=== PATIENT | female | born 1960 | race Caucasian/White ===

== ENCOUNTER → 2016-05-08 | Outpatient (CLI) | payer OTHER ==
[2016-05-08 19:48] LABS: FREE T4 1.11 NG/DL (0.76-1.46)
== END ==
LOC: M LAB 17:47
PROVIDERS: ATTEND Family Medicine
DX: E03.9 Hypothyroidism, unspecified (principal)

== ENCOUNTER → 2016-07-02 | Outpatient (CLI) | payer OTHER ==
[2016-07-02 18:42] LABS: FREE T4 1.04 NG/DL (0.76-1.46)
== END ==
LOC: M LAB 16:53
PROVIDERS: ATTEND Family Medicine
DX: E03.9 Hypothyroidism, unspecified (principal)

== ENCOUNTER → 2016-08-28 | Outpatient (CLI) | payer OTHER ==
[2016-08-28 19:07] LABS: FREE T4 0.89 NG/DL (0.76-1.46)
== END ==
LOC: M LAB 16:14
PROVIDERS: ATTEND Family Medicine
DX: E03.9 Hypothyroidism, unspecified (principal)

== ENCOUNTER → 2016-12-29 | Outpatient (CLI) | payer OTHER ==
[2016-12-29 12:48] LABS: FREE T4 1.02 NG/DL (0.76-1.46)
== END ==
LOC: M LAB 11:35
PROVIDERS: ATTEND Family Medicine
DX: E03.9 Hypothyroidism, unspecified (principal)

== ENCOUNTER → 2017-05-25 | Outpatient (REF) | payer OTHER ==
[2017-05-25 18:26] LABS: FREE T3 6.6 PG/ML (2.2-4.0); FREE T4 1.34 NG/DL (0.76-1.46)
[2017-05-25 18:26] LABS: THYROID STIMULATING HORMONE 0.072 uIU/ML (0.358-3.740)
== END ==
LOC: M LABDRAW1 15:36
DX: E03.9 Hypothyroidism, unspecified (principal)
CPT/HCPCS: 84443

== ENCOUNTER → 2017-06-21 | Outpatient (CLI) | payer OTHER ==
[2017-06-21 20:32] LABS: THYROID STIMULATING HORMONE 0.024 uIU/ML (0.358-3.740)
[2017-06-21 20:32] LABS: FREE T3 5.5 PG/ML (2.2-4.0); FREE T4 1.07 NG/DL (0.76-1.46)
== END ==
LOC: M WUC 16:16
DX: E03.9 Hypothyroidism, unspecified (principal)

== ENCOUNTER → 2017-07-05 | Outpatient (REF) | payer OTHER ==
[2017-07-05 16:28] LABS: THYROID STIMULATING HORMONE 0.018 uIU/ML (0.358-3.740)
[2017-07-05 16:28] LABS: FREE T3 5.1 PG/ML (2.2-4.0); FREE T4 0.82 NG/DL (0.76-1.46)
== END ==
LOC: M LABDRAW1 14:47
DX: E03.9 Hypothyroidism, unspecified (principal)
CPT/HCPCS: 84443

== ENCOUNTER → 2018-04-22 | Outpatient (CLI) | payer OTHER ==
[2018-04-22 19:45] LABS: FREE T3 1.9 PG/ML (2.2-4.0); FREE T4 0.82 NG/DL (0.76-1.46); THYROID STIMULATING HORMONE 1.8 uIU/ML (0.358-3.740)
== END ==
LOC: M WUC 16:46
PROVIDERS: ATTEND Nurse Practitioner
DX: E03.9 Hypothyroidism, unspecified (principal)

== ENCOUNTER → 2018-08-23 | Outpatient (CLI) | payer OTHER ==
[2018-08-23 19:51] LABS: FREE T3 1.5 PG/ML (2.2-4.0); FREE T4 0.77 NG/DL (0.76-1.46); THYROID STIMULATING HORMONE 42.3 uIU/ML (0.358-3.740)
== END ==
LOC: M WUC 17:13
PROVIDERS: ATTEND Family Medicine
DX: E03.9 Hypothyroidism, unspecified (principal)

== ENCOUNTER → 2018-10-24 | Outpatient (CLI) | payer OTHER ==
[2018-10-24 21:00] LABS: FREE T3 2.6 PG/ML (2.2-4.0); FREE T4 0.9 NG/DL (0.76-1.46); THYROID STIMULATING HORMONE 0.141 uIU/ML (0.358-3.740)
== END ==
LOC: M WUC 17:10
PROVIDERS: ATTEND Family Medicine
DX: E03.9 Hypothyroidism, unspecified (principal)

== ENCOUNTER → 2018-11-05 | Outpatient (CLI) | payer OTHER ==
[2018-11-05 09:51] LABS: CHOLESTEROL RISK RATIO 3.15 (<5)
== END ==
LOC: M WUC 08:48
PROVIDERS: ATTEND Family Medicine
DX: Z00.00 Encounter for general adult medical examination without abnormal findings (principal); E78.5 Hyperlipidemia, unspecified

== ENCOUNTER → 2019-02-15 | Outpatient (CLI) | payer OTHER ==
[2019-02-15 20:28] LABS: FREE T3 4.2 PG/ML (2.2-4.0); THYROID STIMULATING HORMONE < 0.005 uIU/ML (0.358-3.740)
== END ==
LOC: M WUC 16:02
PROVIDERS: ATTEND Family Medicine
DX: E03.9 Hypothyroidism, unspecified (principal)

== ENCOUNTER → 2019-03-13 | Outpatient (CLI) | payer OTHER ==
[2019-03-13 20:38] LABS: FREE T3 4.3 PG/ML (2.2-4.0); THYROID STIMULATING HORMONE < 0.005 uIU/ML (0.358-3.740)
[2019-03-13 20:40] LABS: TOTAL 25(OH) VITAMIN D 43.8 NG/ML (30.0-100.0); VITAMIN B12 LEVEL 871 PG/ML (247-911)
== END ==
LOC: M WUC 16:15
PROVIDERS: ATTEND Family Medicine
DX: E03.9 Hypothyroidism, unspecified (principal); E55.9 Vitamin D deficiency, unspecified; E53.8 Deficiency of other specified B group vitamins

== ENCOUNTER → 2019-04-07 | Outpatient (CLI) | payer OTHER ==
[2019-04-07 20:33] LABS: FREE T3 3.4 PG/ML (2.2-4.0); FREE T4 0.84 NG/DL (0.76-1.46); THYROID STIMULATING HORMONE 0.007 uIU/ML (0.358-3.740)
== END ==
LOC: M WUC 16:17
PROVIDERS: ATTEND Family Medicine
DX: E03.9 Hypothyroidism, unspecified (principal)

== ENCOUNTER → 2019-05-09 | Outpatient (CLI) | payer OTHER ==
[2019-05-09 20:11] LABS: FREE T3 3.3 PG/ML (2.2-4.0); FREE T4 0.75 NG/DL (0.76-1.46); THYROID STIMULATING HORMONE 0.012 uIU/ML (0.358-3.740)
== END ==
LOC: M WUC 16:57
PROVIDERS: ATTEND Family Medicine
DX: E03.9 Hypothyroidism, unspecified (principal)

== ENCOUNTER → 2019-08-11 | Outpatient (CLI) | payer OTHER ==
[2019-08-11 14:42] LABS: FREE T3 3.6 PG/ML (2.2-4.0); FREE T4 1.16 NG/DL (0.76-1.46); THYROID STIMULATING HORMONE 0.019 uIU/ML (0.358-3.740)
== END ==
LOC: M WUC 12:25
PROVIDERS: ATTEND Family Medicine
DX: E03.9 Hypothyroidism, unspecified (principal)

== ENCOUNTER → 2019-12-19 | Outpatient (CLI) | payer OTHER ==
[2019-12-19 13:59] LABS: FREE T3 4.3 PG/ML (2.2-4.0); THYROID STIMULATING HORMONE 0.007 uIU/ML (0.358-3.740)
== END ==
LOC: M WUC 10:54
PROVIDERS: ATTEND Family Medicine
DX: E03.9 Hypothyroidism, unspecified (principal)

== ENCOUNTER → 2020-04-22 | Outpatient (CLI) | payer OTHER ==
[2020-04-22 18:57] LABS: FREE T3 2.2 PG/ML (2.2-4.0); FREE T4 0.78 NG/DL (0.76-1.46); THYROID STIMULATING HORMONE 1.16 uIU/ML (0.358-3.740)
== END ==
LOC: M WUC 15:42
PROVIDERS: ATTEND Family Medicine
DX: E03.9 Hypothyroidism, unspecified (principal)

== ENCOUNTER → 2020-10-09 | Outpatient (CLI) | payer OTHER ==
[2020-10-09 17:18] LABS: FREE T3 2.4 PG/ML (2.2-4.0); FREE T4 0.74 NG/DL (0.76-1.46); THYROID STIMULATING HORMONE 3.39 uIU/ML (0.358-3.740)
== END ==
LOC: M WUC 15:24
PROVIDERS: ATTEND Family Medicine
DX: E03.9 Hypothyroidism, unspecified (principal)

== ENCOUNTER → 2021-01-09 | Outpatient (CLI) | payer OTHER ==
[2021-01-09 20:05] LABS: FREE T3 1.4 PG/ML (2.2-4.0)
[2021-01-09 20:08] LABS: THYROID PEROXIDASE ANTIBODY < 28.0 U/ML (<60.0)
[2021-01-09 20:09] LABS: THYROGLOBULIN ANTIBODY 22.2 U/ML (<60.0)
== END ==
LOC: M WUC 15:38
PROVIDERS: ATTEND Family Medicine
DX: E03.9 Hypothyroidism, unspecified (principal)

== ENCOUNTER → 2021-05-05 | Outpatient (CLI) | payer OTHER ==
[2021-05-05 16:04] LABS: FREE T3 1.7 PG/ML (2.2-4.0); FREE T4 0.95 NG/DL (0.76-1.46); THYROID STIMULATING HORMONE 39.6 uIU/ML (0.358-3.740)
== END ==
LOC: M WUC 14:16
PROVIDERS: ATTEND Family Medicine
DX: E03.9 Hypothyroidism, unspecified (principal)

== ENCOUNTER → 2021-07-18 | Outpatient (CLI) | payer OTHER ==
[2021-07-18 23:22] LABS: FREE T3 1.6 PG/ML (2.2-4.0); FREE T4 0.77 NG/DL (0.76-1.46)
== END ==
LOC: M WUC 15:51
PROVIDERS: ATTEND Family Medicine
DX: E03.9 Hypothyroidism, unspecified (principal)

== ENCOUNTER → 2021-09-17 | Outpatient (CLI) | payer OTHER ==
[2021-09-17 20:22] LABS: FREE T3 1.6 PG/ML (2.2-4.0); FREE T4 0.62 NG/DL (0.76-1.46); THYROID STIMULATING HORMONE 62.1 uIU/ML (0.358-3.740)
== END ==
LOC: M WUC 15:40
PROVIDERS: ATTEND Family Medicine
DX: E03.9 Hypothyroidism, unspecified (principal)

== ENCOUNTER → 2021-11-20 | Outpatient (CLI) | payer OTHER ==
[2021-11-20 19:59] LABS: FREE T4 1.01 NG/DL (0.76-1.46); THYROID STIMULATING HORMONE 6.31 uIU/ML (0.358-3.740)
[2021-11-25 03:40] LABS: FREE T3 2.2 PG/ML (2.2-4.0)
== END ==
LOC: M WUC 15:38
PROVIDERS: ATTEND Family Medicine
DX: E03.9 Hypothyroidism, unspecified (principal)

== ENCOUNTER → 2022-01-30 | Outpatient (CLI) | payer BC ==
[2022-01-30 20:36] LABS: FREE T3 2.6 PG/ML (2.2-4.0); FREE T4 1.08 NG/DL (0.76-1.46); THYROID STIMULATING HORMONE 0.601 uIU/ML (0.358-3.740)
== END ==
LOC: M WUC 15:41
PROVIDERS: ATTEND Family Medicine
DX: E03.9 Hypothyroidism, unspecified (principal)

== ENCOUNTER → 2022-04-01 | Outpatient (CLI) | payer BC ==
[2022-04-01 20:00] LABS: FREE T4 1.2 NG/DL (0.89-1.76); THYROID STIMULATING HORMONE 16.252 uIU/ML (0.55-4.78)
== END ==
LOC: M WUC 15:48
PROVIDERS: ATTEND Family Medicine
DX: E03.9 Hypothyroidism, unspecified (principal)

== ENCOUNTER → 2022-08-03 | Outpatient (CLI) | payer BC ==
[2022-08-03 19:55] LABS: FREE T3 2.2 PG/ML (2.3-4.2); FREE T4 1.14 NG/DL (0.89-1.76)
[2022-08-03 19:56] LABS: THYROID STIMULATING HORMONE 7.208 uIU/ML (0.55-4.78)
== END ==
LOC: M WUC 15:42
PROVIDERS: ATTEND Family Medicine
DX: E03.9 Hypothyroidism, unspecified (principal)

== ENCOUNTER → 2022-10-29 | Outpatient (CLI) | payer BC ==
[2022-10-29 17:47] LABS: FREE T4 1.24 NG/DL (0.89-1.76); THYROID STIMULATING HORMONE 3.436 uIU/ML (0.55-4.78)
[2022-10-29 17:50] LABS: FREE T3 2.2 PG/ML (2.3-4.2)
== END ==
LOC: M WUC 12:22
PROVIDERS: ATTEND Family Medicine
DX: E03.9 Hypothyroidism, unspecified (principal); E83.42 Hypomagnesemia

== ENCOUNTER → 2022-11-10 | Outpatient (REF) | payer BC | LOC: M LAB REF 17:08 | PROVIDERS: ATTEND Nurse Practitioner | DX: E03.9 Hypothyroidism, unspecified (principal); E83.42 Hypomagnesemia ==

== ENCOUNTER → 2023-09-01 | Outpatient (REF) | payer BC ==
[2023-09-01 19:59] LABS: FREE T3 2.7 PG/ML (2.3-4.2); FREE T4 1.36 NG/DL (0.89-1.76); THYROID STIMULATING HORMONE 0.8 uIU/ML (0.55-4.78)
== END ==
LOC: M LAB REF 19:24
PROVIDERS: ATTEND Family Medicine
DX: E03.9 Hypothyroidism, unspecified (principal)

== ENCOUNTER → 2024-06-19 | Outpatient (CLI) | payer MEDICARE, BC ==
[2024-06-19 12:49] LABS: BASO % 0.7 % (0.0-1.0); EOS # 0.1 10^3/uL (0.0-0.5); EOS % 1.1 % (0.0-3.0); HEMATOCRIT 39.4 % (36.0-47.0); HEMOGLOBIN 12.8 g/dl (12.0-15.5); LYMPH # 1.5 10^3/uL (1.5-5.0); LYMPH % 27.1 % (24.0-44.0); MEAN CORPUSCULAR HEMOGLOBIN 29.5 pg (27.0-33.0); MEAN CORPUSCULAR HGB CONC 32.5 g/dl (32.0-36.5); MEAN CORPUSCULAR VOLUME 90.8 fl (80.0-96.0); MONO # 0.6 10^3/uL (0.0-0.8); MONO % 10.6 % (2.0-8.0); NEUTROPHILS # 3.4 10^3/uL (1.5-8.5); NEUTROPHILS % 60.3 % (36.0-66.0); PLATELET COUNT, AUTOMATED 298 10^3/uL (150-450); RED BLOOD COUNT 4.34 10^6/uL (4.00-5.40); WHITE BLOOD COUNT 5.6 10^3/uL (4.0-10.0)
[2024-06-19 13:24] LABS: THYROID STIMULATING HORMONE 1.492 uIU/ML (0.55-4.78); TOTAL 25(OH) VITAMIN D 50.2 NG/ML (20.0-100.0)
[2024-06-19 13:25] LABS: BILIRUBIN,TOTAL 0.8 MG/DL (0.3-1.2); CALCIUM LEVEL 9.2 MG/DL (8.3-10.6); CHOLESTEROL RISK RATIO 3.61 (<5); FREE T4 1.61 NG/DL (0.89-1.76); GLOMERULAR FILTRATION RATE 59.1 (>45); HDL CHOLESTEROL 75.8 MG/DL (>40); LDL CHOLESTEROL 190.8 MG/DL (<100); NON-HDL-C 198.2 MG/DL; POTASSIUM SERUM 5.3 MMOL/L (3.5-5.1); TOTAL PROTEIN 7.2 G/DL (5.7-8.2)
[2024-06-19 13:28] LABS: FREE T3 2.7 PG/ML (2.3-4.2)
== END ==
LOC: M WUC 09:19
PROVIDERS: ATTEND Family Medicine
DX: K59.00 Constipation, unspecified (principal); E03.9 Hypothyroidism, unspecified; E78.5 Hyperlipidemia, unspecified; E55.9 Vitamin D deficiency, unspecified; E53.8 Deficiency of other specified B group vitamins

== ENCOUNTER → 2024-11-03 | Outpatient (CLI) | payer MEDICARE, BC ==
[2024-11-03 10:51] LABS: BASO # 0.0 10^3/uL (0.0-0.2); BASO % 0.6 % (0.0-1.0); EOS # 0.1 10^3/uL (0.0-0.5); EOS % 1.1 % (0.0-3.0); LYMPH # 1.5 10^3/uL (1.5-5.0); LYMPH % 31.5 % (24.0-44.0); MONO # 0.6 10^3/uL (0.0-0.8); MONO % 12.7 % (2.0-8.0); NEUTROPHILS # 2.5 10^3/uL (1.5-8.5); NEUTROPHILS % 54.1 % (36.0-66.0); PLATELET COUNT, AUTOMATED 313 10^3/uL (150-450)
[2024-11-03 11:08] LABS: VITAMIN B12 LEVEL 1025 PG/ML (211-911)
[2024-11-03 11:09] LABS: FREE T4 1.24 NG/DL (0.89-1.76); INR 0.95
[2024-11-03 11:11] LABS: ALT/SGPT 24 U/L (7.0-40); AST/SGOT 21 U/L (<34); CALCIUM LEVEL 9.2 MG/DL (8.3-10.6); CARBON DIOXIDE LEVEL 26 MMOL/L (20-31); CHLORIDE LEVEL 95 MMOL/L (98-107); CHOLESTEROL LEVEL 198 MG/DL (<200); CHOLESTEROL RISK RATIO 3.02 (<5); CREATININE FOR GFR 0.98 MG/DL (0.55-1.30); GLOMERULAR FILTRATION RATE 63.7 (>45); IRON (FE) 84 UG/DL (50-170); LDL CHOLESTEROL 124.5 MG/DL (<100); NON-HDL-C 132.5 MG/DL; PERCENT SATURATION 29.2 % (13.2-45.0); POTASSIUM SERUM 4.3 MMOL/L (3.5-5.1); SODIUM LEVEL 132 MMOL/L (136-145); TRIGLYCERIDES LEVEL 40 MG/DL (<150)
[2024-11-03 11:12] LABS: TOTAL 25(OH) VITAMIN D 73.6 NG/ML (20.0-100.0)
[2024-11-03 11:14] LABS: THYROID PEROXIDASE ANTIBODY < 28.0 U/ML (<60.0)
== END ==
LOC: M PLALAB 08:50
PROVIDERS: ATTEND Neuromusculoskeletal Medicine & OMM
DX: Z51.81 Encounter for therapeutic drug level monitoring (principal); E03.9 Hypothyroidism, unspecified; E55.9 Vitamin D deficiency, unspecified; Z79.01 Long term (current) use of anticoagulants; E06.0 Acute thyroiditis; E06.3 Autoimmune thyroiditis; Z13.6 Encounter for screening for cardiovascular disorders; I10 Essential (primary) hypertension; E53.8 Deficiency of other specified B group vitamins; E61.1 Iron deficiency

== ENCOUNTER 2025-01-07 03:35 | Emergency (ER) | payer MEDICARE, BC ==
[~2025-01-07] VITALS: Ht 167.6 cm; Wt 59.7 kg
[2025-01-07] MEDS ORDERED: NP T15TA PO (03:50)
[2025-01-07] MEDS ORDERED: LEVO50TA5 PO (03:50)
[2025-01-07 04:38] LABS: BASO # 0.0 10^3/uL (0.0-0.2); BASO % 0.6 % (0.0-1.0); EOS # 0.1 10^3/uL (0.0-0.5); EOS % 2.0 % (0.0-3.0); LYMPH # 2.4 10^3/uL (1.5-5.0); LYMPH % 36.7 % (24.0-44.0); MONO # 0.7 10^3/uL (0.0-0.8); MONO % 10.3 % (2.0-8.0); NEUTROPHILS # 3.3 10^3/uL (1.5-8.5); NEUTROPHILS % 50.2 % (36.0-66.0); PLATELET COUNT, AUTOMATED 346 10^3/uL (150-450)
[2025-01-07 05:05] LABS: CALCIUM LEVEL 9.7 MG/DL (8.3-10.6); CARBON DIOXIDE LEVEL 26.0 MMOL/L (20-31); CHLORIDE LEVEL 101.0 MMOL/L (98-107); CK-MB VALUE MASS 2.5 NG/ML (<3.6); CREATININE FOR GFR 1.13 MG/DL (0.55-1.30); GLOMERULAR FILTRATION RATE 53.7 (>45); MAGNESIUM LEVEL 2.3 MG/DL (1.8-2.4); POTASSIUM SERUM 4.4 MMOL/L (3.5-5.1); SODIUM LEVEL 137.0 MMOL/L (136-145)
[2025-01-07 05:08] LABS: FREE T4 1.34 NG/DL (0.89-1.76)
[2025-01-07] MEDS: METOPROLOL 5 MG/5 ML VIAL IV SCH (05:12)
[2025-01-07 05:18] LABS: CPK CREATINE PHOSPHOKINASE 117.0 U/L (34-145); MB/CK RELATIVE INDEX 2.13 (< OR =4)
[2025-01-07 06:10] VITALS: BP 146/82
[2025-01-07 06:21] LABS: CK-MB VALUE MASS 2.1 NG/ML (<3.6)
[2025-01-07 06:26] LABS: CPK CREATINE PHOSPHOKINASE 91.0 U/L (34-145); MB/CK RELATIVE INDEX 2.3 (< OR =4)
[2025-01-07] MEDS ORDERED: HOME MED LIST COMPLETE! XX SCH (07:15)
[2025-01-07 07:59] VITALS: TEMP 97.2
[2025-01-07] MEDS ORDERED: METO1TAB32 PO (08:10)
[2025-01-07] MEDS ORDERED: ELIQ5TAB PO (08:10)
[2025-01-07 08:12] VITALS: BP 142/82; O2SAT 100
[2025-01-07] MEDS: METOPROLOL SUCC. 25 MG *XL* TAB PO ONE (08:48)
[2025-01-07] MEDS: APIXABAN 5 MG TAB PO ONE (08:48)
== END 2025-01-07 08:50 | disposition home or self-care (01) ==
LOC: M ED 03:35
DX: I48.91 Unspecified atrial fibrillation (principal); Z91.018 Allergy to other foods
CPT/HCPCS: 80048; 82550; 82553; 83735; 84439; 84443; 84481; 84484; 85025; 93005; 93041; 94760; 96374; 96376; 99285; J0616

== ENCOUNTER → 2025-01-18 | Outpatient (CLI) | payer MEDICARE, BC ==
[~2025-01-18] MED LIST: ELIQ5TAB PO; LEVO50TA5 PO; METO1TAB32 PO; NP T15TA PO
[2025-01-18 12:57] LABS: BASO # 0.0 10^3/uL (0.0-0.2); BASO % 0.3 % (0.0-1.0); EOS # 0.1 10^3/uL (0.0-0.5); EOS % 1.6 % (0.0-3.0); LYMPH # 1.4 10^3/uL (1.5-5.0); LYMPH % 21.4 % (24.0-44.0); MONO # 0.7 10^3/uL (0.0-0.8); MONO % 10.0 % (2.0-8.0); NEUTROPHILS # 4.5 10^3/uL (1.5-8.5); NEUTROPHILS % 66.4 % (36.0-66.0); PLATELET COUNT, AUTOMATED 303 10^3/uL (150-450)
[2025-01-18 13:05] LABS: ALT/SGPT 21 U/L (7.0-40); AST/SGOT 18 U/L (<34); CALCIUM LEVEL 9.2 MG/DL (8.3-10.6); CARBON DIOXIDE LEVEL 28 MMOL/L (20-31); CHLORIDE LEVEL 97 MMOL/L (98-107); CHOLESTEROL LEVEL 221 MG/DL (<200); CHOLESTEROL RISK RATIO 3.14 (<5); CREATININE FOR GFR 0.92 MG/DL (0.55-1.30); GLOMERULAR FILTRATION RATE 68.7 (>45); IRON (FE) 68 UG/DL (50-170); LDL CHOLESTEROL 140.3 MG/DL (<100); NON-HDL-C 150.7 MG/DL; PERCENT SATURATION 22.1 % (13.2-45.0); POTASSIUM SERUM 5.0 MMOL/L (3.5-5.1); SODIUM LEVEL 130 MMOL/L (136-145); TRIGLYCERIDES LEVEL 52 MG/DL (<150)
[2025-01-18 13:07] LABS: TOTAL 25(OH) VITAMIN D 60.5 NG/ML (20.0-100.0); VITAMIN B12 LEVEL 842 PG/ML (211-911)
[2025-01-18 13:08] LABS: FREE T4 0.83 NG/DL (0.89-1.76)
[2025-01-18 13:10] LABS: INR 0.93; THYROID PEROXIDASE ANTIBODY < 28.0 U/ML (<60.0)
== END ==
LOC: M PLALAB 11:08
PROVIDERS: ATTEND Neuromusculoskeletal Medicine & OMM
DX: Z51.81 Encounter for therapeutic drug level monitoring (principal); Z79.01 Long term (current) use of anticoagulants; E06.9 Thyroiditis, unspecified; E55.9 Vitamin D deficiency, unspecified; E03.9 Hypothyroidism, unspecified; E78.00 Pure hypercholesterolemia, unspecified; Z13.6 Encounter for screening for cardiovascular disorders; I10 Essential (primary) hypertension; E61.1 Iron deficiency; E53.8 Deficiency of other specified B group vitamins

== ENCOUNTER 2025-01-30 03:10 | Emergency (ER) | payer MEDICARE, BC ==
[~2025-01-30] VITALS: Ht 167.6 cm; Wt 59.2 kg
[2025-01-30 03:41] LABS: BASO # 0.0 10^3/uL (0.0-0.2); BASO % 0.5 % (0.0-1.0); EOS # 0.1 10^3/uL (0.0-0.5); EOS % 1.9 % (0.0-3.0); LYMPH # 2.4 10^3/uL (1.5-5.0); LYMPH % 41.0 % (24.0-44.0); MONO # 0.6 10^3/uL (0.0-0.8); MONO % 9.9 % (2.0-8.0); NEUTROPHILS # 2.8 10^3/uL (1.5-8.5); NEUTROPHILS % 46.5 % (36.0-66.0); PLATELET COUNT, AUTOMATED 294 10^3/uL (150-450)
[2025-01-30 04:04] LABS: CPK CREATINE PHOSPHOKINASE 94.0 U/L (34-145)
[2025-01-30 04:05] LABS: CALCIUM LEVEL 9.1 MG/DL (8.3-10.6); CARBON DIOXIDE LEVEL 26.0 MMOL/L (20-31); CHLORIDE LEVEL 101.0 MMOL/L (98-107); CK-MB VALUE MASS 1.3 NG/ML (<3.6); CREATININE FOR GFR 0.93 MG/DL (0.55-1.30); GLOMERULAR FILTRATION RATE 67.8 (>45); MB/CK RELATIVE INDEX 1.38 (< OR =4); POTASSIUM SERUM 4.2 MMOL/L (3.5-5.1); SODIUM LEVEL 136.0 MMOL/L (136-145)
[2025-01-30 05:06] LABS: MAGNESIUM LEVEL 1.9 MG/DL (1.8-2.4)
[2025-01-30 05:12] LABS: FREE T4 1.11 NG/DL (0.89-1.76)
[2025-01-30 05:29] LABS: VENOUS BASE EXCESS 1.7 (-2.0-2.0); VENOUS HCO3 28.2 MMOL/L (23.0-27.0); VENOUS O2 SATURATION 63.6 % (60.0-80.0); VENOUS PARTIAL PRESSURE CO2 51.6 mmHg (38.0-50.0); VENOUS PARTIAL PRESSURE O2 34.6 mmHg (30.0-50.0); VENOUS PH 7.355 UNITS (7.330-7.430); VENOUS STANDARD HCO3 25.2 MMOL/L; VENOUS TOTAL CO2 29.8 MMOL/L (24.0-28.0)
[2025-01-30 05:35] LABS: CK-MB VALUE MASS 1.3 NG/ML (<3.6)
[2025-01-30 05:36] LABS: CPK CREATINE PHOSPHOKINASE 91.0 U/L (34-145); MB/CK RELATIVE INDEX 1.42 (< OR =4)
[2025-01-30 07:22] VITALS: TEMP 96.1
[2025-01-30 09:30] VITALS: O2SAT 100
[2025-01-30 09:34] VITALS: BP 173/93
== END 2025-01-30 09:43 | disposition home or self-care (01) ==
LOC: M ED 03:10
DX: I48.0 Paroxysmal atrial fibrillation (principal); E03.9 Hypothyroidism, unspecified; Z91.018 Allergy to other foods; Z91.0110 Allergy to milk products, unspecified; Z79.01 Long term (current) use of anticoagulants; Z79.890 Hormone replacement therapy; Z79.899 Other long term (current) drug therapy